=== PATIENT | male | born 1995 | race Two or more races ===

== ENCOUNTER 2017-03-01 22:25 | Emergency (ER) | payer BC ==
[~2017-03-01] VITALS: Ht 185.4 cm; Wt 90.7 kg
[2017-03-01 22:53] VITALS: BP 148/76
[2017-03-02] MEDS ORDERED: IBUPROFEN 600 MG TAB PO ONE (01:00)
[2017-03-02] MEDS ORDERED: BACLOFEN 10 MG TAB PO ONE (01:00)
== END 2017-03-02 01:42 | disposition home or self-care (01) ==
LOC: ER 22:47
DX: S39.012A Strain of muscle, fascia and tendon of lower back, initial encounter (principal); S46.819A Strain of other muscles, fascia and tendons at shoulder and upper arm level, unspecified arm, initial encounter; V49.49XA Driver injured in collision with other motor vehicles in traffic accident, initial encounter; Y93.89 Activity, other specified; Y99.8 Other external cause status; Y92.89 Other specified places as the place of occurrence of the external cause

== ENCOUNTER 2023-12-10 09:17 | Emergency (ER) | payer BC, OTHER ==
[~2023-12-10] VITALS: Ht 182.9 cm; Wt 90.9 kg
[2023-12-10 10:13] VITALS: PULSE 108; RESP 18; TEMP 98.2; O2SAT 98
[2023-12-10] MEDS ORDERED: IBUP-1456 PO (10:46)
[2023-12-10] MEDS ORDERED: BACL10TA PO (10:46)
[2023-12-10 10:54] VITALS: BP 130/73; PULSE 91; RESP 18; O2SAT 97
== END 2023-12-10 10:56 | disposition home or self-care (01) ==
LOC: EDBD 09:17 → ER 09:23
DX: S16.1XXA Strain of muscle, fascia and tendon at neck level, initial encounter (principal); S39.012A Strain of muscle, fascia and tendon of lower back, initial encounter; Z79.899 Other long term (current) drug therapy; V49.88XA Car occupant (driver) (passenger) injured in other specified transport accidents, initial encounter; Y93.I9 Activity, other involving external motion; Y92.488 Other paved roadways as the place of occurrence of the external cause; Y99.8 Other external cause status
CPT/HCPCS: 72040; 72100